=== PATIENT | female | born 1960 | race Caucasian/White ===

== ENCOUNTER → 2016-02-21 | Outpatient (CLI) | payer BC ==
--- NOTE | 2016-02-21 09:17 | MA ---
Screening Digital Mammogram Clinical Indications: Routine screening. Technique: Standard cephalocaudal and mediolateral oblique projections were obtained. This examinat ion was processed by the [employer] computer aided detection system. Comparison: 2007, 2008, 2011, 2013. Breast density: D; The breast tissue is extremely dense. This may lower the sensitivity of mammograph y. Findings: CAD was reviewed. There is diffuse prominent ductal pattern. There is some subtle stable cl ustered microcalcifications deep in the central right breast since 2007. No suspicious areas are iden tified in either breast Impression: Benign mammogram BI-RADS 2: Benign Finding.. Recommendation: Routine screening is recommended in one year, as long as physical examination is ivy ign in this patient with extremely dense breast parenchyma. [facility] will send a result letter to the patient. Negative mammography should not preclude additional workup of a clinically suspicious finding. The patient's information is entered into a reminder system with a target due date for her next mammo gram.
== END ==
LOC: CIMAGING 07:07
DX: Z12.31 Encounter for screening mammogram for malignant neoplasm of breast (principal)
CPT/HCPCS: G0202

== ENCOUNTER → 2017-03-05 | Outpatient (CLI) | payer BC | LOC: CIMAGING 10:49 | PROVIDERS: ATTEND Obstetrics & Gynecology | DX: Z12.31 Encounter for screening mammogram for malignant neoplasm of breast (principal); N20.0 Calculus of kidney | CPT/HCPCS: 74018-PO ==

== ENCOUNTER → 2017-03-29 | Outpatient (CLI) | payer BC | LOC: CIMAGING 14:44 | PROVIDERS: ATTEND Internal Medicine | DX: Z13.828 Encounter for screening for other musculoskeletal disorder (principal); M25.552 Pain in left hip | CPT/HCPCS: 73502-PO ==

== ENCOUNTER → 2018-07-16 | Outpatient (CLI) | payer OTHER | LOC: FIMAGING 13:26 ==